=== PATIENT | male | born 1965 | race African-American/Black ===

== ENCOUNTER 2020-04-22 17:59 | Emergency (ER) | payer OTHER ==
--- OUTSIDE RECORDS SUMMARY | 2020-04-22 18:02 | XMS REPORT | Continuity of Care Document ---
:1965 Author Organization [facility] t Address [address] [place] [address] Care Team Providers Name Role Phone Unavailable Unavailable Unavailable Problems Condition Condition Condition Status Onset Resolution Last Treating Co mments Source Name Details Category Date Date Treatment Clinician Date Gout Gout Problem Active [facility] Subconjunc Subconjunc Problem Active [facility] t[facility] tival [facility] hemorrhage Hemorrhage Me dical Group Essential Essential Problem Active [facility]ens[facility]pertens[facility] Knee pain Knee Pain Problem Active [facility] Allergies, Adverse Reactions, Alerts This patient has no known allergies or adverse reactions. Social History Smoking Status Start Date Stop Date Source Never Smoker [facility] Medications Ordered Filled Start Stop Current Ordering Indication Dosage Frequency Signature Comments Components Source Medication Medication Date Date Medication? Clinician (SIG) Name Name valsartan valsartan 2019-02 No valsartan [facility] 320 mg 320 mg 0-14 320 mg da tablet tablet 00:00: tablet [facility] 00 Group allopurinol allopurinol No allopurino [facility] 100 mg 100 mg l 100 mg da tablet Take tablet Take tablet Medical 1 tablet by 1 tablet by Take 1 Group mouth once mouth once tablet by daily daily mouth once daily amlodipine amlodipine No amlodipine [facility] 10 mg 10 mg 10 mg da tablet Take tablet Take tablet Medical 1 tablet 1 tablet Take 1 Group every day every day tablet by oral by oral every day route. route. by oral route. clonidine clonidine No clonidine [facility] HCl 0.1 mg HCl 0.1 mg HCl 0.1 mg da tablet Take tablet Take tablet Medical 1 tablet 1 tablet Take 1 Group every day every day tablet by oral by oral every day route as route as by oral needed. needed. route as needed. cyclobenzap cyclobenzap No cyclobenza [facility] rine 10 mg rine 10 mg alcon 10 da tablet TAKE tablet TAKE mg tablet Medical 1 TABLET BY 1 TABLET BY TAKE 1 Group MOUTH TWICE MOUTH TWICE TABLET BY DAILY DAILY MOUTH NEEDED NEEDED TWICE DAILY NEEDED gabapentin gabapentin No gabapentin [facility] 100 mg 100 mg 100 mg da capsule capsule capsule Medica l Take 1 Take 1 Take 1 Group capsule capsule capsule twice a day twice a day twice a by oral by oral day by route. route. oral route. hydrochloro hydrochloro No hydrochlor [facility] thiazide 25 thiazide 25 othiazide da mg tablet mg tablet 25 mg Medi joce Take 1 Take 1 tablet Group tablet tablet Take 1 every day every day tablet by oral by oral every day route. route. by oral route. meloxicam meloxicam No meloxicam [facility] 7.5 mg 7.5 mg 7.5 mg da tablet TAKE tablet TAKE tablet Medical 1 TABLET BY 1 TABLET BY TAKE 1 Group MOUTH ONCE MOUTH ONCE TABLET BY DAILY DAILY MOUTH ONCE NEEDED NEEDED DAILY NEEDED naproxen naproxen No naproxen [facility] 500 mg 500 mg 500 mg da tablet Take tablet Take tablet Medical 1 tablet by 1 tablet by Take 1 Group mouth twice mouth twice tablet by daily daily mouth twice daily nifedipine nifedipine No nifedipine [facility] ER 60 mg ER 60 mg ER 60 mg da tablet,exte tablet,exte tablet,ext Medical nded nded ended Group release release release TAKE 1 TAKE 1 TAKE 1 TABLET BY TABLET BY TABLET BY MOUTH ONCE MOUTH ONCE MOUTH ONCE DAILY DAILY DAILY Immunizations Ordered Immunization Filled Immunization Date Status Commen ts Source Name Name Tdap Tdap 2009-02-12 Completed [facility] Vital Signs Vital Name Observation Time Observation Value Comments Source Height 2020-03-09 00:00:00 67 [in_i] [facility] BMI (Body Mass 2020-03-09 00:00:00 31.8 kg/m2 [facility] Index) Group Body Weight 2020-03-09 00:00:00 3248 [oz_av] [facility] BP Diastolic 2020-02-20 00:00:00 140 mm[Hg] [facility] Height 2020-02-20 00:00:00 67 [in_i] [facility] BMI (Body Mass 2020-02-20 00:00:00 31.8 kg/m2 [facility] Medical Index) Group BP Systolic 2020-02-20 00:00:00 229 mm[Hg] [facility] Body Weight 2020-02-20 00:00:00 3248 [oz_av] [facility] BP Diastolic 2019-12-24 00:00:00 128 mm[Hg] [facility] Height 2019-12-24 00:00:00 67 [in_i] [facility] BMI (Body Mass 2019-12-24 00:00:00 31.6 kg/m2 [facility] Medical Index) Group BP Systolic 2019-12-24 00:00:00 216 mm[Hg] [facility] Body Weight 2019-12-24 00:00:00 3232 [oz_av] [facility] BP Diastolic 2019-11-26 00:00:00 99 mm[Hg] [facility] Height 2019-11-26 00:00:00 67 [in_i] [facility] BMI (Body Mass 2019-11-26 00:00:00 31.8 kg/m2 [facility] Medical Index) Group BP Systolic 2019-11-26 00:00:00 166 mm[Hg] [facility] Body Weight 2019-11-26 00:00:00 3248 [oz_av] [facility] BP Diastolic 2019-07-31 00:00:00 99 mm[Hg] [facility] Height 2019-07-31 00:00:00 67 [in_i] [facility] BMI (Body Mass 2019-07-31 00:00:00 32.6 kg/m2 [facility] Medical Index) Group BP Systolic 2019-07-31 00:00:00 156 mm[Hg] [facility] Body Weight 2019-07-31 00:00:00 3328 [oz_av] [facility] BP Diastolic 2018-10-23 00:00:00 80 mm[Hg] [facility] Height 2018-10-23 00:00:00 67 [in_i] [facility] BMI (Body Mass 2018-10-23 00:00:00 31.5 kg/m2 [facility] Medical Index) Group BP Systolic 2018-10-23 00:00:00 154 mm[Hg] [facility] Body Weight 2018-10-23 00:00:00 3216 [oz_av] [facility] BP Diastolic 2018-02-20 00:00:00 110 mm[Hg] [facility] Height 2018-02-20 00:00:00 67 [in_i] [facility] BMI (Body Mass 2018-02-20 00:00:00 32.9 kg/m2 [facility] Medical Index) Group BP Systolic 2018-02-20 00:00:00 221 mm[Hg] [facility] Body Weight 2018-02-20 00:00:00 3360 [facility]av[facility] Procedures Procedure Date / Time Performed Performing Clinician Sour e unlisted imaging order 2019-12-24 00:00:00 [facility] Plan of Care Planned Activity Planned Date Details Comments Source Diagnostic Test 2020-03-09 [facility]00 SARS CoV 2 Ag, QL Group [place], respiratory specimen [code = rapid SARS CoV + SARS CoV 2 Ag, QL [place], respiratory specimen] Instructions [facility] Encounters Start End Encounter Admission Attending Care Care Encounter Source Date/Time Date/Time Type Type Clinicians Facility Department ID 2020-03-09 2020-03-09 Dulce [facility] [place] - [id number] [facility] 00:00:00 00:00:00 Discovery suze Ochoa FERMENTER OPERATOR: [facility] - [address] [place] [address] , Ph. 2020-02-20 2020-02-20 Halima [facility] [place] - [id number] M [facility] 00:00:00 00:00:00 Discovery suze Zamorano [facility] [address] [place] [address] , Ph. 2019-12-24 2019-12-24 Dulce [facility] [place] - [id number] [facility] 00:00:00 00:00:00 Discovery Gabriela da FERMENTER OPERATOR: [address] [place] [address] [facility] [address], [facility] [place] [address] , Ph. 2019-11-26 2019-11-26 Dulce [facility] [place] - [id number] M [facility] 00:00:00 00:00:00 Discovery Gabriela da FERMENTER OPERATOR: [address] [place] [address] [facility] - [address], [place] [address] , Ph. 2019-07-31 2019-07-31 Dulce [facility] [place] - [id number] M [facility] 00:00:00 00:00:00 Discovery Gabriela da FERMENTER OPERATOR: [address] [place] [address] [facility] - [address], [facility] [place] [address] , Ph. 2019-06-25 2019-06-25 Dulce [facility] [place] - [id number] M [facility] 00:00:00 00:00:00 Discovery Gabriela da FERMENTER OPERATOR: [address] [place] [address] [facility] - [address], [facility] [place] [address] , Ph. 2018-10-23 2018-10-23 Dulce [facility] [place] - [id number] M [facility] 00:00:00 00:00:00 Discovery Gabriela da FERMENTER OPERATOR: [address] [place] [address] [facility] - [address], [facility] [place] [address] , Ph. 2018-02-20 2018-02-20 Dulce [facility] [place] - [id number] [facility] 00:00:00 00:00:00 Discovery Gabriela da FERMENTER OPERATOR: [address] [place] [address], [facility] - [address], [facility] [place] [address] , Ph. Results Test Description Test Time Test Comments Results Result Comments Source SARS-CoV+SARS-CoV-2 (COVID-19) Ag [Pres[facility]] in Respiratory 2020-03-09 10:55:00 specimen by Rapid immunoassay Test Item Value Reference Range Interpretation Comme nts SARS-CoV - 2 (test code = SARS-CoV - 2) [facility]OVID[facility]) Ag [Presence] in Respiratory specimen by Rapid [id number] 08:43:00 Test Item Value Reference Range Interpretation Comments SARS-CoV - 2 (test code = SARS-CoV - negative 2) [facility]
[2020-04-22] MEDS ORDERED: IBUPROFEN 200 MG TAB PO ONE (22:58)
--- NOTE | 2020-04-22 23:04 | EDPHYS ---
Physician Documentation [facility] Name: Calin Schmidt III Age: 54 yrs Sex: Male : 1965 Arrival Date: 04/22/2020 Time: 18:15 Bed 16 Private MD: ED Physician Meri Santiago HPI: 04/22 22:30 This 54 yrs old Black Male presents to ER via Ambulatory with complaints of Neck Pain. ma2 22:30 The patient or guardian complains of decreased range of motion, pain, that is chronic. ma2 The symptoms are located. Onset: The symptoms/episode began/occurred gradually, 3 year(s) ago. Associated signs and symptoms: Pertinent negatives: constipation, headache, bladder incontinence, nausea, tingling, vomiting, weakness. Severity of symptoms: At their worst the symptoms were mild, in the emergency department the symptoms are unchanged. The patient has experienced similar episodes in the past. Historical: - Allergies: 18:32 No Known Allergies; ca1 - PMHx: 18:32 Hypertension; ca1 - PSHx: 18:32 None; ca1 - Immunization history:: Flu vaccine is not up to date. - Social history:: Smoking status: Patient denies any tobacco usage or history of. Patient/guardian denies using alcohol, street drugs, The patient lives with family. - Family history:: not pertinent. ROS: 22:30 Constitutional: Negative for fever, chills, and weight loss. ma2 22:30 All other systems are negative. Exam: 22:30 Constitutional: This is a well developed, well nourished patient who is awake, alert, ma2 and in no acute distress. Head/Face: Normocephalic, atraumatic. Eyes: Pupils equal round and reactive to light, extra-ocular motions intact. Lids and lashes normal. Conjunctiva and sclera are non-icteric and not injected. Cornea within normal limits. Periorbital areas with no swelling, redness, or edema. ENT: Nares patent. No nasal discharge, no septal abnormalities noted. Tympanic membranes are normal and external auditory canals are clear. Oropharynx with no redness, swelling, or masses, exudates, or evidence of obstruction, uvula midline. Mucous membranes moist. Neck: Trachea midline, no thyromegaly or masses palpated, and no cervical lymphadenopathy. Supple, full range of motion without nuchal rigidity, or vertebral point tenderness. No Meningismus. Chest/axilla: Normal chest wall appearance and motion. Nontender with no deformity. No lesions are appreciated. Cardiovascular: Regular rate and rhythm with a normal S1 and S2. No gallops, murmurs, or rubs. Normal PMI, no JVD. No pulse deficits. Respiratory: Lungs have equal breath sounds bilaterally, clear to auscultation and percussion. No rales, rhonchi or wheezes noted. No increased work of breathing, no retractions or nasal flaring. Abdomen/GI: Soft, non-tender, with normal bowel sounds. No distension or tympany. No guarding or rebound. No evidence of tenderness throughout. Back: No spinal tenderness. No costovertebral tenderness. Full range of motion. Skin: Warm, dry with normal turgor. Normal color with no rashes, no lesions, and no evidence of cellulitis. MS/ Extremity: Pulses equal, no cyanosis. Neurovascular intact. Full, normal range of motion. Neuro: Awake and alert, GCS 15, oriented to person, place, time, and situation. Cranial nerves II-XII grossly intact. Motor strength 5/5 in all extremities. Sensory grossly intact. Cerebellar exam normal. Normal gait. Vital Signs: 18:30 BP 149 / 86; Pulse 101; Resp 18 S; Temp 98.5(TE); Pulse Ox 99% on R/A; Weight 86.18 kg ca1 (R); Height 5 ft. 10 in. (177.80 cm) (R); Pain 10/10; 18:30 Body Mass Index 27.26 (86.18 kg, 177.80 cm) ca1 MDM: 21:47 Patient medically screened. ma2 22:30 Differential diagnosis: arthritis, cervical strain, Spondylosis torticollis. Data ma2 reviewed: vital signs, nurses notes. Counseling: I had a detailed discussion with the patient and/or guardian regarding: the historical points, exam findings, and any diagnostic results supporting the discharge/admit diagnosis, the presence of at least one elevated blood pressure reading (>120/80) during this emergency department visit, the need for outpatient follow up. Response to treatment: the patient's symptoms have markedly improved after treatment. 04/22 22:17 Order name: XRAY C Spine Ap/lat ma2 Administered Medications: 22:42 Drug: Motrin 200 mg Route: PO; sf 23:10 Follow up: Response: No adverse reaction sf Disposition: 04/22/20 23:03 Discharged to Home. Impression: Sprain of ligaments of cervical spine. - Condition is Stable. - Discharge Instructions: Neck Exercises. - Prescriptions for Diclofenac Sodium 75 mg Oral Tablet Sustained Release - take 1 tablet by ORAL route 2 times per day; 30 tablet. - Medication Reconciliation Form, Thank You Letter, Antibiotic Education, Prescription Opioid Use form. - Follow up: Private Physician; When: Tomorrow; Reason: Continuance of care. Signatures: Dispatcher [employer] EDMS Meri Santiago MD MD ma2 Ramona Santos RN RN ca1 Stefan Lopez RN RN sf Corrections: (The following items were deleted from the chart) 23:26 23:03 04/22/2020 23:03 Discharged to Home. Impression: Sprain of ligaments of cervical sf spine. Condition is Stable. Prescriptions for Diclofenac Sodium 75 mg Oral Tablet Sustained Release - take 1 tablet by ORAL route 2 times per day; 30 tablet. and Forms are Medication Reconciliation Form, Thank You Letter, Antibiotic Education, Prescription Opioid Use. Follow up: Private Physician; When: Tomorrow; Reason: Continuance of care. ma2
--- NOTE | 2020-04-22 23:04 | ER ---
Nurse's Notes [facility] Name: Calin Schmidt III Age: 54 yrs Sex: Male : 1965 Arrival Date: 04/22/2020 Time: 18:15 Bed 16 Private MD: Diagnosis: Sprain of ligaments of cervical spine Presentation: 04/22 18:30 Chief complaint: Patient states: pain and stiffness of neck x 3 weeks. reports pain on ca1 neck. Denies injury to neck. Coronavirus screen: Client denies travel out of the [place] in the last 14 days. At this time, the client does not indicate any symptoms associated with coronavirus-19. Ebola Screen: Patient negative for fever greater than or equal to 101.5 degrees Fahrenheit, and additional compatible Ebola Virus Disease symptoms Patient denies exposure to infectious person. Patient denies travel to an Ebola-affected area in the 21 days before illness onset. No symptoms or risks identified at this time. Initial Sepsis Screen: Does the patient meet any 2 criteria? No. Patient's initial sepsis screen is negative. Does the patient have a suspected source of infection? No. Patient's initial sepsis screen is negative. Risk Assessment: Do you want to hurt yourself or someone else? Patient reports no desire to harm self or others. Onset of symptoms was April 22, 2020. 18:30 Method Of Arrival: Ambulatory ca1 18:30 Acuity: YOVANI 4 ca1 Historical: - Allergies: 18:32 No Known Allergies; ca1 - PMHx: 18:32 Hypertension; ca1 - PSHx: 18:32 None; ca1 - Immunization history:: Flu vaccine is not up to date. - Social history:: Smoking status: Patient denies any tobacco usage or history of. Patient/guardian denies using alcohol, street drugs, The patient lives with family. - Family history:: not pertinent. Screenin:40 Abuse screen: Denies threats or abuse. Denies injuries from another. sf 22:40 Nutritional screening: No deficits noted. Tuberculosis screening: No symptoms or risk sf factors identified. Never had TB. Possible symptoms: None Risk factors: None. Fall Risk None identified. No fall in past 12 months (0 pts). No secondary diagnosis (0 pts). No IV (0 pts). Ambulatory Aid- None/Bed Rest/Nurse Assist (0 pts). Gait- Normal/Bed Rest/Wheelchair (0 pts) Mental Status- Oriented to own ability (0 pts). Total Chavez Fall Scale indicates No Risk (0-24 pts). Assessment: 22:40 General: Appears in no apparent distress. comfortable, Behavior is calm, cooperative, sf appropriate for age. Pain: Pain currently is 9 out of 10 on a pain scale. Neuro: No deficits noted. Level of Consciousness is awake, alert, Oriented to person, place, time, situation, Appropriate for age. Cardiovascular: No deficits noted. Patient's skin is warm and dry. Respiratory: No deficits noted. Airway is patent Respiratory effort is even, unlabored, Respiratory pattern is regular, symmetrical. GI: No signs and/or symptoms were reported involving the gastrointestinal system. : No signs and/or symptoms were reported regarding the genitourinary system. Musculoskeletal: Range of motion: intact in all extremities, Reports pain in back of neck. Vital Signs: 18:30 BP 149 / 86; Pulse 101; Resp 18 S; Temp 98.5(TE); Pulse Ox 99% on R/A; Weight 86.18 kg ca1 (R); Height 5 ft. 10 in. (177.80 cm) (R); Pain 10/10; 18:30 Body Mass Index 27.26 (86.18 kg, 177.80 cm) ca1 ED Course: 18:15 Patient arrived in ED. ds1 18:32 Triage completed. ca1 18:32 Arm band placed on right wrist. ca1 21:47 Meri Santiago MD is Attending Physician. ma2 22:40 Patient has correct armband on for positive identification. Bed in low position. Call sf light in reach. Side rails up X 1. Door closed. Noise minimized. Visitors limited. Lights dimmed. 22:40 No provider procedures requiring assistance completed. IV discontinued, intact, sf bleeding controlled, No redness/swelling at site. Pressure dressing applied. 23:09 Stefan Lopez RN is Primary Nurse. sf 23:10 XRAY C Spine Ap/lat Sent. sf 03 00:58 XRAY C Spine Ap/lat In Process Unspecified. EDMS Administered Medications: 04/22 22:42 Drug: Motrin 200 mg Route: PO; sf 23:10 Follow up: Response: No adverse reaction sf Outcome: 23:03 Discharge ordered by . emmy 23:25 Discharged to home ambulatory. sf 23:25 Condition: stable 23:25 Discharge instructions given to patient, Instructed on discharge instructions, follow up and referral plans. medication usage, Demonstrated understanding of instructions, follow-up care, medications, Prescriptions given X 1. 23:26 Patient left the ED. sf Signatures: Dispatcher [employer] [facility] Sandra Mckeon ds1 Meri Santiago MD MD ma2 Acob, Cheryl, RN RN ca1 Stefan Lopez RN RN sf Corrections: (The following items were deleted from the chart) 23:12 22:40 Musculoskeletal: Range of motion: intact in all extremities, sf sf
[2020-04-22 23:46] VITALS: BP 149/86; TEMP 98.5; O2SAT 99
--- NOTE | 2020-04-23 08:39 | RAD REPORT ---
EXAM DESCRIPTION: RAD - C Spine Ap/Lat - 04/22/2020 10:58 pm CLINICAL HISTORY: PAIN COMPARISON: No comparisons FINDINGS: 3 mm degenerative retrolisthesis of C3 on 4 is present. 3 mm degenerative anterolisthesis of C5 on 6.No fracture or acute bony process seen.Disc space narrowing with small endplate osteophyte C2-3, C4-5.Prominent bilateral facet hypertrophy, greater on the left is seen. No prevertebral soft tissue thickening or other suspicious soft tissue finding. IMPRESSION: Moderate multilevel cervical degenerative changes are present as detailed. Follow-up blaine ging of the cervical spine with MRI would be suggested.
== END 2020-04-22 23:26 | disposition home or self-care (01) ==
LOC: ER 17:59
DX: S13.4XXA Sprain of ligaments of cervical spine, initial encounter (principal); I10 Essential (primary) hypertension
CPT/HCPCS: 72040; 99283